=== PATIENT | female | born 2000 | race Caucasian/White ===

== ENCOUNTER → 2020-04-07 16:25 | Outpatient (CLI) | payer MEDICAID, SELFPAY ==
[2020-04-07 17:33] LABS: HCG,Quantitative 1569 mIU/ml (0-5.42)
== END ==
PROVIDERS: Visit Provider Nurse Practitioner Obstetrics & Gynecology
DX: Z34.90 Encounter for supervision of normal pregnancy, unspecified, unspecified trimester (principal)
CPT/HCPCS: 36415; 84702

== ENCOUNTER → 2020-04-22 17:45 | Outpatient (CLI) | payer MEDICAID, SELFPAY ==
[2020-04-27 10:27] LABS: Neisseria gonorrhoeae, NAA Negative (Negative)
== END ==
PROVIDERS: Visit Provider Nurse Practitioner Obstetrics & Gynecology
DX: Z34.90 Encounter for supervision of normal pregnancy, unspecified, unspecified trimester (principal)
CPT/HCPCS: 87491; 87591

== ENCOUNTER → 2020-04-28 11:06 | Outpatient (CLI) | payer MEDICAID, SELFPAY ==
--- NOTE | 2020-04-28 11:13 | US_ITS ---
PROCEDURE: US OB <= 14 WEEKS FETUS CLINICAL INDICATION: for dates Early Ob ultrasound for dates COMPARISON: No exams were available for comparison FINDINGS: An intrauterine gestational sac is present with a pole with a crown-rump length of 1.61cm correlating to gestational age of 8weeks 1day. heart tones are present with an FHR of 150bpm. Yolk sac is noted. Left-sided hemorrhagic the glued in cyst noted at 2 cm. IMPRESSION: Of 8 live IUP with estimated age of 8 weeks and 1 day. Estimated due date by Ultrasound is 12/07/2020 Dictated by: Antonio Roland MD 04/28/2020 15:48 Antonio Roland MD in [facility] 04/28/2020 15:48
== END ==
PROVIDERS: PCP Internal Medicine; Visit Provider Nurse Practitioner Obstetrics & Gynecology
DX: Z34.90 Encounter for supervision of normal pregnancy, unspecified, unspecified trimester (principal)
CPT/HCPCS: 76801

== ENCOUNTER → 2020-05-17 10:22 | Outpatient (CLI) | payer MEDICAID, SELFPAY ==
[2020-05-17 10:53] LABS: Basophils % 0.2 % (0.1-2.0); Eosinophils # 0.1 K/mm3 (0.0-0.4); Eosinophils % 0.7 % (0.1-12.0); Hematocrit 41.4 % (37.0-47.0); Hemoglobin 13.5 g/dL (12.2-16.2); Lymphocytes # 1.8 K/mm3 (0.7-4.5); Lymphocytes % 18.3 % (10-50); Mean Corpuscular HGB Conc 32.7 g/dL (31.8-35.4); Mean Corpuscular Hemoglobin 28.8 pg (27.0-31.2); Mean Corpuscular Volume 88.1 fl (81-99); Mean Platelet Volume 7.3 fl (7.4-10.4); Monocytes # 0.4 K/mm3 (0.1-1.0); Monocytes % 4.4 % (1.7-9.3); Neutrophils # 7.4 K/mm3 (1.8-7.8); Neutrophils % 76.4 % (37.0-80.0); Platelet Count 354 K/mm3 (142-424); Red Cell Distribution Width 13.8 % (11.5-17.5); White Blood Count 9.7 K/mm3 (4.5-13.0)
[2020-05-18 09:16] LABS: HIV Screen 4th Generation wRfx Non Reactive (Non Reactive)
[2020-05-18 10:50] LABS: Hepatitis B Surface Antigen Negative (Negative); Hepatitis C Antibody <0.1 s/co ratio (0.0-0.9); Rubella Antibodies, IgG 1.79 index (Immune >0.99)
[2020-05-18 16:27] LABS: Rapid Plasma Reagin Ab Titer Non Reactive (NonRea<1:1)
== END ==
PROVIDERS: Visit Provider Nurse Practitioner Obstetrics & Gynecology
DX: Z34.90 Encounter for supervision of normal pregnancy, unspecified, unspecified trimester (principal)
CPT/HCPCS: 36415; 85025; 86592; 86703; 86762; 86850; 87340; 87380; G0432

== ENCOUNTER → 2020-07-23 10:54 | Outpatient (CLI) | payer MEDICAID, SELFPAY ==
--- NOTE | 2020-07-23 10:56 | US_ITS ---
PROCEDURE: US OB /MATERNAL DETAIL CLINICAL INDICATION: 20 wk +Anatomy Scan COMPARISON: US US OB <= 14 WEEKS FETUS from 04/28/2020 FINDINGS: There is a single live fetus which is in breech presentation. Cervix is closed measuring 4 cm. The placenta is anterior have an unremarkable appearance. heart and body motion noted. Complete survey performed and was unremarkable on the submitted images as in PACS. No discrete anomalies identified on survey imaging by technologist. Active fetus. Three-vessel cord with satisfactory umbilical cord insertion. 4- chamber heart noted. Survey of brain & ventricles Unremarkable. Face and neck survey unremarkable. Diaphragm and chest views unremarkable. Abdomen: Both kidneys noted and unremarkable. Stomach noted and satisfactory. Spine: Survey of the spine satisfactory with no anomalies identified nor imaged. Both arms and legs noted. Amniotic Fluid: Adequate. Maternal adnexa: No significant findings. Measurements: Average ultrasound age 20weeks 2days. Gestational Age 20weeks 2days Estimated due date by ultrasound age 0812/08/2020. Estimated weight 344g BPD = 20weeks 3days OFD = 20 weeks 5 days HC = 19weeks 6days AC = 20weeks 3days FL = 20weeks 3days Growth Percentile= 38% Heart Rate = 152bpm Cerebellum = 20weeks 4days Humerus = HC/AC is 1.14 CI is 0.78 FL/BPD is 0.7 FL/AC is 0.22 IMPRESSION: Live IUP in breech presentation with an average ultrasound age of 20 weeks 2 days. No obvious anomalies. Please see above for detail. Dictated by: Antonio Roland MD 07/24/2020 10:11 Antonio Roland MD in [facility] 07/24/2020 10:11
== END ==
PROVIDERS: PCP Internal Medicine; Visit Provider Nurse Practitioner Obstetrics & Gynecology
DX: Z34.80 Encounter for supervision of other normal pregnancy, unspecified trimester (principal); Z36.0 Encounter for antenatal screening for chromosomal anomalies; Z98.891 History of uterine scar from previous surgery
CPT/HCPCS: 76811

== ENCOUNTER → 2020-09-03 08:26 | Outpatient (CLI) | payer MEDICAID, SELFPAY ==
[2020-09-03 09:19] LABS: Glucose,Fasting 88 mg/dl (74-100)
[2020-09-03 10:21] LABS: Glucose 1 Hour 57 mg/dL (74-100)
== END ==
PROVIDERS: Visit Provider Nurse Practitioner Obstetrics & Gynecology
DX: Z34.90 Encounter for supervision of normal pregnancy, unspecified, unspecified trimester (principal)
CPT/HCPCS: 36415; 82951

== ENCOUNTER → 2020-10-29 14:37 | Outpatient (CLI) | payer MEDICAID, SELFPAY ==
--- NOTE | 2020-10-29 14:37 | US_ITS ---
PROCEDURE: US OB BIOPHYSICAL PROFILE CLINICAL INDICATION: SGA TECHNIQUE: FINDINGS: Single live fetus is present which is in cephalic presentation. Cervix is closed measuring 3 cm. The placenta is anterior and grade 1. No previa or abruption. The following parameters are obtained: Average ultrasound age is Average 33weeks 2days Estimated due date by ultrasound is 12/15/2020. Estimated weight is 2,133g. This is 14th percentile. BPD: 32weeks 2days OFD: 32weeks 2days HC: 32 weeks 5 days AC: 33 weeks 2 days FL: 33 weeks 3 days heart rate: 150bpm bpm. HC/AC: 1.01 Cephalic index: 0.8 FL/BPD: 0.78 FL/AC: 0.22 Amniotic fluid index: 12.69cm Qualitative AFV: 2 breathing movements: 2 Gross body movements: 2 Tone: 2 Biophysical profile score: 8 IMPRESSION: BP in cephalic presentation with an average ultrasound age 32 weeks 2 days and an estimated weight 2133 g which is 14th percentile which does not meet criteria for intrauterine growth restriction. Biophysical profile 8 of 8 Amniotic fluid index 13 cm Dictated by: Antonio Roland MD 10/29/2020 16:08 Antonio Roland MD in [facility] 10/29/2020 16:08
== END ==
PROVIDERS: Visit Provider Nurse Practitioner Obstetrics & Gynecology
DX: O36.5990 Maternal care for other known or suspected poor fetal growth, unspecified trimester, not applicable or unspecified (principal)
CPT/HCPCS: 76816; 76819

== ENCOUNTER 2020-11-05 02:42 | Outpatient (CLI) | payer MEDICAID, SELFPAY ==
[2020-11-05 02:48] VITALS: BMI 24.7
[2020-11-05 03:08] VITALS: BP 122/77; PULSE 98; RESP 18; TEMP 36.8; O2SAT 100; BMI 24.7
[2020-11-05 04:19] LABS: Microscopic, Urine URINE MICROSCOPIC (MICROSCOPIC)
[2020-11-05 04:29] LABS: Appearance,Urine CLEAR (Clear); Bilirubin,Urine Negative (Negative); Blood, Urine Negative (Negative); Color,Urine YELLOW (Yellow); Glucose,Urine (UA) Negative (Negative); Ketones,Urine Negative (Negative); Leukocyte Esterase,Urine TRACE (Negative); Nitrate,Urine Negative (Negative); Protein,Urine Negative (Negative); Urobilinogen,Urine 0.2 EU/dl (0.2)
[2020-11-05 05:06] LABS: Amphetamine/Metha Screen,Urine Negative ng/ml (<1000)
[2020-11-05 05:07] LABS: Barbiturates Screen,Urine Negative ng/ml (<200); Benzodiazepines Screen,Urine Negative ng/ml (<200)
[2020-11-05 05:08] LABS: Cannabinoid Screen,Urine Negative ng/ml (<50)
[2020-11-05 05:09] LABS: Cocaine Screen,Urine Negative ng/ml (<300); Methadone Screen,Urine Negative ng/ml (<300)
[2020-11-05 05:10] LABS: Opiate Screen,Urine Negative ng/ml (<300); Phencyclidine Screen,Urine Negative ng/ml (<25)
[2020-11-05 05:21] LABS: WBC,Urine Occasional #/hpf (0-3)
--- NOTE | 2020-11-05 09:29 | HMH.ACPN2 ---
Internal Medicine - PN: Subj *Date: 11/05/20 *Time: 09:29 Interval history: She came in with regular contractions. She is amparo every 2 to 3 minutes. She has received IV fluids as well as 1 dose of Brethine. We decided to give her a dose of Celestone as well since she is just 35 weeks. After receiving the IV fluids and Brethine her contractions have settled. The nonstress test is reactive. Her cervix is long and closed. She is due for a repeat in about 4 weeks. Exam Vital signs and Labs for Last 24 Hours: Temp Pulse Resp BP Pulse Ox 98.2 F 98 H 18 122/77 100 11/05/20 03:08 11/05/20 03:08 11/05/20 03:08 11/05/20 03:08 11/05/20 03:08 Laboratory Results - last 24 hr 11/05/20 03:27: Urine Color Yellow, Urine Appearance Clear, Urine pH 7.0, Ur Specific [place] 1.010, Urine Protein Negative, Urine Glucose (UA) Negative, Urine Ketones Negative, Urine Blood Negative, Urine Nitrate Negative, Urine Bilirubin Negative, Urine Urobilinogen 0.2, Ur Leukocyte Esterase Trace, Urine RBC None, Urine WBC Occasional, Ur Squamous Epith Cells 3-5, Urine Bacteria None 11/05/20 03:27: Urine Opiates Screen Negative, Urine Methadone Screen Negative, Ur Barbituates Screen Negative, Ur Phencyclidine Scrn Negative, Ur Amphetamines Screen Negative, U Benzodiazepines Scrn Negative, Urine Cocaine Screen Negative, U Marijuana (THC) Screen Negative I & O for Last 24 hours: Intake & Output 11/02/20 11/03/20 11/04/20 11/05/20 11:59 11:59 11:59 11:59 Weight 153 lb - Constitutional no acute distress - *Routine HEENT Exam Head: Present: normocephalic Eye: Present: EOMI, PERRL ENT: Present: mucous membranes moist Assessment and Plan (1) False labor Status: Acute Category: Medical Code(s): O47.9 - False labor, unspecified (2) Previous section Status: Acute Category: Surgical Code(s): Z98.891 - History of uterine scar from previous surgery - Assessment and plan all Dx Assessment and Plan for all problems:: She received IV fluids as well as 1 dose of Brethine. Her contractions have settled. Her cervix is unchanged. She has received 1 dose of Celestone and will return tomorrow for her second dose. Should be discharged home to follow-up with me next week.
== END 2020-11-05 09:00 | disposition home or self-care (01) ==
LOC: OBOUT 02:44 → OB 02:45
PROVIDERS: Visit Provider Nurse Practitioner Obstetrics & Gynecology
DX: O47.03 False labor before 37 completed weeks of gestation, third trimester (principal); Z3A.35 35 weeks gestation of pregnancy
CPT/HCPCS: 59025; 80305; 81001; 96365; 96372; G0463

== ENCOUNTER 2020-11-06 04:02 | Outpatient (CLI) | payer MEDICAID, SELFPAY ==
[2020-11-06 04:04] VITALS: BP 116/77; PULSE 80; RESP 18; TEMP 37; O2SAT 98; BMI 24.7
[2020-11-06 04:19] LABS: Microscopic, Urine URINE MICROSCOPIC (MICROSCOPIC)
[2020-11-06 04:21] LABS: Appearance,Urine SL CLOUDY (Clear); Bilirubin,Urine Negative (Negative); Blood, Urine Negative (Negative); Color,Urine YELLOW (Yellow); Glucose,Urine (UA) Negative (Negative); Ketones,Urine Negative (Negative); Leukocyte Esterase,Urine 1+ (Negative); Nitrate,Urine Negative (Negative); PH,Urine 6.5 (5.0-8.5); Protein,Urine Negative (Negative); Urobilinogen,Urine 0.2 EU/dl (0.2)
[2020-11-06 04:29] LABS: Bacteria,Urine 4+ /lpf; Yeast,Urine 1+ /lpf
[2020-11-06 04:32] LABS: Amphetamine/Metha Screen,Urine Negative ng/ml (<1000)
[2020-11-06 04:33] LABS: Barbiturates Screen,Urine Negative ng/ml (<200); Benzodiazepines Screen,Urine Negative ng/ml (<200)
[2020-11-06 04:34] LABS: Cannabinoid Screen,Urine Negative ng/ml (<50)
[2020-11-06 04:35] LABS: Cocaine Screen,Urine Negative ng/ml (<300); Methadone Screen,Urine Negative ng/ml (<300)
[2020-11-06 04:36] LABS: Opiate Screen,Urine Negative ng/ml (<300)
[2020-11-06 04:37] LABS: Phencyclidine Screen,Urine Negative ng/ml (<25)
== END 2020-11-06 07:55 | disposition home or self-care (01) ==
LOC: OBOUT 04:04 → OB 04:04
PROVIDERS: Visit Provider Nurse Practitioner Obstetrics & Gynecology
DX: O47.03 False labor before 37 completed weeks of gestation, third trimester (principal); Z3A.35 35 weeks gestation of pregnancy
CPT/HCPCS: 59025; 80305; 81001; 87086; 96365; 96372; G0463

== ENCOUNTER → 2020-11-09 08:33 | Outpatient (CLI) | payer MEDICAID, SELFPAY | PROVIDERS: Visit Provider Nurse Practitioner Obstetrics & Gynecology | DX: Z34.90 Encounter for supervision of normal pregnancy, unspecified, unspecified trimester (principal) | CPT/HCPCS: 86403 ==

== ENCOUNTER → 2020-11-30 12:25 | Outpatient (CLI) | payer MEDICAID, SELFPAY ==
[2020-11-30 12:28] LABS: Coronavirus 19, PCR Not Detected (NotDetected); Influenza A, PCR Not Detected (NotDetected); Influenza B, PCR Not Detected (NotDetected)
[2020-11-30 13:09] LABS: Chloride 105 mmol/L (98-107); Sodium 134 mmol/L (136-145)
[2020-11-30 13:12] LABS: Blood Urea Nitrogen 9 mg/dl (7-17); Estimated Glomerular Filt Rate 107 ml/min (>60); GFR (African American) 129 ML/MIN (>60)
[2020-11-30 13:13] LABS: Calcium 8.9 mg/dl (8.4-10.2); Carbon Dioxide 25 mmol/L (22.0-30.0); Glucose 102 mg/dl (74-100)
[2020-11-30 13:21] LABS: Basophils % 0.3 % (0.1-2.0); Eosinophils % 0.3 % (0.1-12.0); Hematocrit 35.7 % (37.0-47.0); Hemoglobin 11.1 g/dL (12.2-16.2); Lymphocytes # 1.9 K/mm3 (0.7-4.5); Lymphocytes % 21.2 % (10-50); Mean Corpuscular HGB Conc 31.1 g/dL (31.8-35.4); Mean Corpuscular Hemoglobin 25.3 pg (27.0-31.2); Mean Corpuscular Volume 81.4 fl (81-99); Mean Platelet Volume 7.3 fl (7.4-10.4); Monocytes # 0.5 K/mm3 (0.1-1.0); Monocytes % 5.6 % (1.7-9.3); Neutrophils # 6.6 K/mm3 (1.8-7.8); Neutrophils % 72.7 % (37.0-80.0); Platelet Count 300 K/mm3 (142-424); Red Blood Count 4.38 M/mm3 (4.20-5.40); Red Cell Distribution Width 14.7 % (11.5-17.5); White Blood Count 9.1 K/mm3 (4.5-13.0)
== END ==
PROVIDERS: Visit Provider Nurse Practitioner Obstetrics & Gynecology
DX: Z01.818 Encounter for other preprocedural examination (principal); Z34.90 Encounter for supervision of normal pregnancy, unspecified, unspecified trimester
CPT/HCPCS: 36415; 80048; 85025; U0003

== ENCOUNTER 2020-12-01 05:05 | Inpatient (IN) | payer MEDICAID, SELFPAY ==
--- NOTE | 2020-11-06 15:27 | PC.NURSE ---
@ 1525 [facility] pharmacy called and reported we needed a PA for insurance. Not able to do that right now. pharmacist reported she can do no insurance and get 20 pills for $15 or 10 pills for $8. will call patient. [phone] attempted to call patient and make her aware of situation. No answer
--- NOTE | 2020-11-25 12:05 | SUR.PREOP ---
instructed ptatient to come in Sunday for COVID screening. Patient stated understanding
[2020-12-01] VITALS (9 sets, daily range): BP systolic 117–161; BP diastolic 63–80; PULSE 63–82; RESP 14–18; TEMP 36.6–36.9; O2SAT 98–100; BMI 25.9
[2020-12-01 06:32] LABS: Microscopic, Urine URINE MICROSCOPIC (MICROSCOPIC)
[2020-12-01 06:34] LABS: Appearance,Urine SL CLOUDY (Clear); Bilirubin,Urine Negative (Negative); Blood, Urine Negative (Negative); Color,Urine YELLOW (Yellow); Glucose,Urine (UA) Negative (Negative); Ketones,Urine Negative (Negative); Leukocyte Esterase,Urine 2+ (Negative); Nitrate,Urine Negative (Negative); PH,Urine 6.5 (5.0-8.5); Protein,Urine Negative (Negative); Specific Gravity, Urine 1.025 (1.005-1.030); Urobilinogen,Urine 0.2 EU/dl (0.2)
[2020-12-01 06:48] LABS: Bacteria,Urine Trace /lpf; RBC,Urine Occasional #/hpf (0-3)
--- NOTE | 2020-12-01 07:11 | P.PN_ITS ---
[facility] Anesthesia Checklist - Patient Identification Patient Identification: Arm Band - Structural Data Planned Operative Procedure/s: C/S Consent for Planned Operative Procedure(s) Verified: Yes - NPO Status Verified Time NPO: 00:00 - Airway Assessment C-Spine Mobility Assessed: Yes TMJ Mobility Assessed: Yes Dentition: Good Dentition - Neurological Assessment Level of Consciousness: Awake Hx Seizures: No Numbness or tingling in extremities: No - Anesthesia Plan Anesthesia Risk discussed: Yes Anesthesia Plan: Verified ASA Class: II Anesthesia Type: General (Patient request due to anaphylaxis to Lidocaine) [facility] History I have reviewed the patient's past medical history: Yes Medical History: Denies:: Cancer, Diabetes Mellitus Type 1, Diabetes Mellitus Type 2, MRSA *Have you ever received a pneumonia vaccine?: No *Have you received a flu vaccine this season?: No Anesthesia experience/problems:: None Laterality Cases: Bilateral: Tonsillectomy Other Surgeries: Yes: , Other Amputation: No Fractures: No - *Social History Smoking Status: Never smoker Alcohol Intake: never Alcohol Intake Frequency:: other Substance Use Type: denies use *Occupational Status:: employed *Travel in the last 8 weeks: None Family Hx:: No significant family history Para: 1
[2020-12-01 07:52] LABS: Cord Blood PH 7.38 (7.35-7.45)
--- NOTE | 2020-12-01 08:11 | HMH.OPNOTE ---
Date of procedure: 12/01/20 Pre-op Diagnosis:: Term , previous section, severe allergy to lidocaine Post-op Diagnosis:: Term , previous section, severe allergy to lidocaine Procedure performed:: Repeat lower segment transverse section Surgeon:: Elvis Grijalva MD Associate Material Handler(s):: Lakeshia Somers SEMICONDUCTOR EQUIPMENT TECHNICIAN:: Clarice Larkin Anesthesia: GETA Estimated blood loss (mL): 600 Clinical Note:: She is a 20-year-old 2 para 1 at 39 weeks gestational age. She had a previous section. 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 As result of that she was offered repeat lower segment transverse section at term under general anesthesia. The risks and benefits of surgery were discussed with the patient prior to surgery. Operative findings:: She delivered a liveborn male child at 7:45 AM on the morning of December 01, 2020. The baby had Apgars of 6 at 1 minute 7 at 5 minutes and 9 at 10 minutes. pH was 7.38. Ovaries and tubes were normal. The lower segment was quite thin. Operative note:: She was taken to the operating room where general anesthesia was found be adequate. She was prepped and draped in normal sterile fashion in the supine position with a leftward tilt. A Gates catheter was in the bladder. A Pfannenstiel skin incision was made with knife then carried through to the underlying layer of fascia with knife. The fascia was opened in the midline with cautery and extended laterally using Ayala scissors. [place] clamps were applied to the superior aspect of the fascial incision which was tented up and the underlying rectus muscles dissected off using Ayala scissors. The Madan clamps were then applied to the inferior aspect of the fascial incision which in a similar fashion was tented up and the underlying rectus muscles dissected off using Ayala scissors. The rectus muscles were then in the midline, the peritoneum identified, and entered sharply with Ayala scissors. This incision was then extended superiorly and inferiorly with Ayala scissors. We had good visualization of the bladder inferiorly. The bladder flap was quite thin so we elected to not dissect the bladder off and just went slightly above the level of the bladder flap to enter the uterine cavity. Transverse incision was made through the uterine muscle to the amnion. This incision was then extended laterally using fingers traction. The amnion was entered sharply with knife. There was clear amniotic fluid. The infant's head was then delivered atraumatically. This was followed by the anterior shoulder and the rest of the infant's body atraumatically. The oropharynx and nasopharynx were bulb suctioned. The was then handed off to Dr. Garcia who assigned Apgars of 6 at 1 minute and 7 at 5 minutes and 9 at 5 minutes.. We then obtained cord blood as well as cord pH. The pH was 7.38. Using gentle traction on the cord and countertraction on the fundus I was able to easily deliver the placenta intact. It had a normal three-vessel cord. The uterus was then cleared of clots and debris . Uterus was exteriorized from the abdominal cavity. The uterine incision was then closed using running 0 Vicryl suture in a locked fashion. A second layer of the same suture was used to imbricate the first layer. The bladder peritoneum was then closed using running 2-0 Vicryl suture in a locked fashion. The gutters and cul-de-sac were then cleared of clots and debris . Once again hemostasis was assured. The uterus was then returned to the abdominal cavity. I elected to place a small piece of Surgicel along the uterine incision. The peritoneum was grasped with Kendy clamps and closed using running 2-0 Vicryl suture. The rectus muscles were then reapproximated using running 0 Vicryl suture. The fascia was closed using running #1 Vicryl suture. The subcutaneous tissues were then irrigated with warm water followed by closure Tawny's fascia usi
[2020-12-01 08:20] LABS: Barbiturates Screen,Urine Negative ng/ml (<200)
[2020-12-01 08:21] LABS: Amphetamine/Metha Screen,Urine Negative ng/ml (<1000); Benzodiazepines Screen,Urine Negative ng/ml (<200)
--- NOTE | 2020-12-01 08:21 | HMH.OBAPHP ---
OB - H&P: HPI Antepartum - History of Present Illness Chief complaint: Term , previous section, lidocaine allergy History of present illness: She is a 20-year-old 2 para 1 at 39 weeks gestational age. She had a previous section and as result of that was offered repeat lower segment transverse section at term. She also has a severe anaphylactic allergy to lidocaine and as result of that was offered general anesthesia for her section. - History of Present Criteria for establishing EDC:: LMP confirmed by 1st trimester US care: good care Ultrasounds: normal 1st trimester US, normal mid trimester US Obstetrical complications: none Medical complications: none - Labs Blood type: O (-) negative Rubella: immune RPR/VDRL: nonreactive GBS status: negative HBsAG: negative [facility] History I have reviewed the patient's past medical history: Yes Medical History: Denies:: Cancer, Diabetes Mellitus Type 1, Diabetes Mellitus Type 2, MRSA, Seizures *Have you ever received a pneumonia vaccine?: No *Have you received a flu vaccine this season?: No Anesthesia experience/problems:: None Laterality Cases: Bilateral: Tonsillectomy Other Surgeries: Yes: , Other Amputation: No Fractures: No - *Social History Smoking Status: Never smoker Alcohol Intake: never Alcohol Intake Frequency:: other Substance Use Type: denies use *Occupational Status:: employed *Travel in the last 8 weeks: None Family Hx:: No significant family history Para: 1 Review of Systems - Review of Systems Review of systems:: pertinent systems reviewed and negative unless documented below Meds Home Medications Medication Instructions Recorded Confirmed Type PNV 153-FA 400 mcg-om3 35 mg-dha tab PO 04/22/20 11/29/20 History 25 mg-epa 5 mg-fish oil chew tablet ferrous sulfate 325 mg (65 mg 325 mg PO DAILY #30 tab 07/23/20 11/29/20 Rx iron) tablet NIFEdipine [NIFEdipine 10mg 10 mg PO Q6H #120 cap 11/06/20 11/29/20 Rx Capsule] Allergies Allergy/AdvReac Type Severity Reaction Status Date / Time lidocaine Allergy Verified 11/29/20 12:29 OB - H&P: Exam - Physical Exam Vital signs: Temp Pulse Resp BP Pulse Ox 97.8 F 75 18 124/80 99 12/01/20 06:17 12/01/20 06:17 12/01/20 06:17 12/01/20 06:17 12/01/20 06:17 - Constitutional no acute distress - Routine HEENT Exam Head: Present: normocephalic Eye: Present: EOMI, PERRL ENT: Present: mucous membranes moist - Routine Neck Exam Present: supple, full ROM - Routine Respiratory Exam Absent: accessory muscle use (good air entry bilaterally), respiratory distress, wheezes, crackles - Routine Cardiovascular Exam Present: RRR. Absent: murmur - Routine Abdominal Exam Present: soft, normoactive bowel sounds. Absent: tenderness, distended, guarding - Routine Rectal Exam Patient deferred: visual exam, digital exam - Routine Exam Patient deferred: external exam, groin exam, perineal exam - Routine Extremities Exam Present: full ROM. Absent: cyanosis, edema - Routine Skin Exam Present: intact. Absent: cyanosis - Routine Neurological Exam Present: alert, oriented X3 - Routine Psychiatric Exam Present: normal affect OB - Results - Labs Labs: Urine 12/01/20 Range/Units 05:56 Urine Color Yellow (Yellow) Urine Appearance Sl cloudy (Clear) Urine pH 6.5 (5.0-8.5) Ur Specific [place] 1.025 (1.005-1.030) Urine Protein Negative (Negative) Urine Glucose (UA) Negative (Negative) OB - A/P Antepartum (1) delivery delivered Status: Acute (2) Previous section Status: Acute - Additional Plan Planning to breastfeed?: No Plan: other Additional Information:: She is here for repeat lower segment transverse section.
[2020-12-01 08:22] LABS: Cannabinoid Screen,Urine Negative ng/ml (<50)
--- NOTE | 2020-12-01 08:22 | HMH.ANESI ---
[facility] Anesthesia Record Part I Intake, IV Amount: 1,000 Estimated blood loss (mL): 600 Urine output (mL): 200 Blood Pressure: 161/73 SaO2: 99 Pulse Rate: 82 Respiratory Rate: 14 Temperature: 98.4 F Patient is:: Awake Stable to PACU at:: 08:20
[2020-12-01 08:23] LABS: Cocaine Screen,Urine Negative ng/ml (<300); Methadone Screen,Urine Negative ng/ml (<300)
[2020-12-01 08:24] LABS: Opiate Screen,Urine Negative ng/ml (<300)
[2020-12-01 08:25] LABS: Phencyclidine Screen,Urine Negative ng/ml (<25)
--- NOTE | 2020-12-01 09:15 | SUR.OPER ---
QBL completed in PACU and recorded as 544ml, reported to dr duke/ apgars reported by OB as , time of 0745, 200 urine discarded from [place]fe per anesthesia
--- NOTE | 2020-12-01 10:11 | HMH.ANESII ---
[facility] Anesthesia Record Part II Discharge Time: 08:50 Destination: Obstetric PACU nurse assessment reviewed?: Yes Patient Condition:: Good Anesthesia Complications:: None Swallowing reflex intact?: Yes Cyanosis?: No Blood Pressure: 126/72 Pulse Rate: 70 Temperature: 98.3 F Mental Status: Alert & Oriented Pain level:: 7 Nausea and/or vomitting:: None Intake, IV Amount: 0
[2020-12-01 14:34] LABS: Microscopic,Cath URINE MICROSCOPIC (MICROSCOPIC)
[2020-12-01 14:47] LABS: Appearance,Urine/Cath CLEAR (Clear); Bilirubin,Cath Negative (Negative); Blood, Urine/Cath Negative (Negative); Color,Urine/Cath YELLOW (Yellow); Glucose,Urine/Cath (UA) Negative (Negative); Ketones,Urine/Cath Negative (Negative); Leukocyte Esterase,Cath Negative (Negative); Nitrate,Cath Negative (Negative); Protein,Urine/Cath Negative (Negative); Urobilinogen,Cath 0.2 EU/dl (0.2)
[2020-12-02 07:03] LABS: Hematocrit 29.5 % (37.0-47.0); Hemoglobin 9.5 g/dL (12.2-16.2)
[2020-12-02 09:07] VITALS: BP 109/79; PULSE 66; RESP 16; TEMP 36.5; O2SAT 100
--- NOTE | 2020-12-02 09:08 | HMH.ACPN2 ---
Internal Medicine - PN: Subj *Date: 12/02/20 *Time: 09:08 Interval history: She is doing very well. Her hemoglobin is stable. Her pain is well controlled. She is bottlefeeding. Her lochia is normal. She is 24 hours post section. Exam Vital signs and Labs for Last 24 Hours: Temp Pulse Resp BP Pulse Ox 98.3 F 70 18 126/72 98 12/01/20 10:12 12/01/20 10:12 12/01/20 09:25 12/01/20 10:12 12/01/20 08:50 Laboratory Results - last 24 hr 12/01/20 07:30: Urine Color Yellow, Urine Appearance Clear, Urine pH 7.0, Ur Specific [place] 1.010, Urine Protein Negative, Urine Glucose (UA) Negative, Urine Ketones Negative, Urine Blood Negative, Urine Nitrate Negative, Urine Bilirubin Negative, Urine Urobilinogen 0.2, Ur Leukocyte Esterase Negative, Urine RBC None, Urine WBC None, Ur Squamous Epith Cells None, Urine Bacteria None 12/02/20 06:25: Hgb 9.5 L, Hct 29.5 L I & O for Last 24 hours: Intake & Output 11/29/20 11/30/20 12/01/20 12/02/20 11:59 11:59 11:59 11:59 Intake Total 1070 / 1070 Output Total 200 / 200 Balance 870 / 870 Weight 5 lb 6 oz Microbiology Reports for the Last 24 Hours: Microbiology 12/01/20 05:56 Urine,Clean Catch Urine Culture - Preliminary NO GROWTH AFTER 24 HOURS - Constitutional no acute distress - *Routine HEENT Exam Head: Present: normocephalic Eye: Present: EOMI, PERRL ENT: Present: mucous membranes moist - *Routine Abdominal Exam Present: soft, normoactive bowel sounds. Absent: tenderness Comments: Her incision is clean and dry. Assessment and Plan (1) delivery delivered Status: Acute Category: Medical Code(s): O82 - Encounter for delivery without indication (2) Previous section Status: Acute Category: Surgical Code(s): Z98.891 - History of uterine scar from previous surgery - Assessment and plan all Dx Assessment and Plan for all problems:: She continues to do very well. We will plan to send her home tomorrow.
[2020-12-02 12:46] VITALS: BP 100/51; PULSE 84; RESP 18; TEMP 36.8; O2SAT 98
[2020-12-02 16:40] VITALS: BP 104/53; PULSE 69; RESP 17; TEMP 36.9; O2SAT 98
[2020-12-02 20:00] VITALS: BP 107/63; PULSE 83; RESP 18; TEMP 36.7; O2SAT 100
[2020-12-03 04:36] VITALS: BP 112/67; PULSE 86; RESP 17; TEMP 36.8; O2SAT 98
[2020-12-03 08:26] VITALS: BP 114/70; PULSE 83; RESP 16; TEMP 36.8; O2SAT 98
--- NOTE | 2020-12-03 10:43 | HMH.ACPN2 ---
Internal Medicine - PN: Subj *Date: 12/03/20 *Time: 10:43 Interval history: She continues to do very well. She is eating and drinking and ambulating. She is bottlefeeding. Her lochia is normal. We were planning to send her home today but her baby is going to be under the bili lights for the next day. We will plan to send her home tomorrow. Exam Vital signs and Labs for Last 24 Hours: Temp Pulse Resp BP Pulse Ox 98.3 F 83 16 114/70 98 12/03/20 08:26 12/03/20 08:26 12/03/20 08:26 12/03/20 08:26 12/03/20 08:26 I & O for Last 24 hours: Intake & Output 11/30/20 12/01/20 12/02/20 12/03/20 11:59 11:59 11:59 11:59 Intake Total 1070 / 1070 Output Total 200 / 200 Balance 870 / 870 Weight 5 lb 6 oz Microbiology Reports for the Last 24 Hours: Microbiology 12/01/20 05:56 Urine,Clean Catch Urine Culture - Final NO GROWTH AFTER 48 HOURS - Constitutional no acute distress - *Routine HEENT Exam Head: Present: normocephalic Eye: Present: EOMI, PERRL ENT: Present: mucous membranes moist Assessment and Plan (1) delivery delivered Status: Acute Category: Medical Code(s): O82 - Encounter for delivery without indication (2) Previous section Status: Acute Category: Surgical Code(s): Z98.891 - History of uterine scar from previous surgery - Assessment and plan all Dx Assessment and Plan for all problems:: She is doing very well. We will send her home tomorrow.
[2020-12-03 12:04] VITALS: BP 110/58; PULSE 98; RESP 18; TEMP 36.8; O2SAT 98
[2020-12-03 16:02] VITALS: BP 110/63; PULSE 88; RESP 16; TEMP 36.8; O2SAT 99
[2020-12-03 20:00] VITALS: BP 112/67; PULSE 75; RESP 18; TEMP 37.4; O2SAT 100
[2020-12-04 04:00] VITALS: BP 99/67; PULSE 83; RESP 18; TEMP 37; O2SAT 100
[2020-12-04 08:16] VITALS: BP 110/61; PULSE 88; RESP 18; TEMP 36.7; O2SAT 98
--- NOTE | 2020-12-04 08:16 | P.CONPHA_ITS ---
[facility] Pharmacy VTE Monitoring - Patient Demographics Admission date: 12/01/20 Report Date: 12/04/20 Time: 08:16 Allergies/Adverse Reactions: Patient Allergies lidocaine Allergy (Verified 11/29/20 12:29) Height: 1.68 m Weight: 2.438 kg Patient Problems: Current Active Problems Previous section (Acute) delivery delivered (Acute) - VTE Risk Labs: VTE Related Lab Results Hgb 9.5 g/dL (12.2-16.2) L 12/02/20 06:25 Hct 29.5 % (37.0-47.0) L 12/02/20 06:25 - Prophylaxis VTE Prophylaxis Ordered?: Yes Types of VTE Prophylaxis: IPCS Thigh High Location of Applied Device: Bilateral Lower Extremeties
--- NOTE | 2020-12-04 09:38 | HMH.OBDCSM ---
General - General Admission date:: 12/01/20 Discharge date: 12/04/20 HPI - History of Present Illness History of present illness: She is a 20-year-old 2 now para 2 who was 39 weeks gestational age. She had a previous section and as result of that was offered repeat lower segment transverse section at term. She has a severe allergy to lidocaine and as result of that was offered general anesthesia for her . Hospital Course Hospital Course: On November 23, 2020 she underwent a repeat lower segment transverse section under general anesthesia. She delivered a liveborn male child at 7:45 AM. Baby weighed 6 pounds 2 ounces and was 18 inches long. He had Apgars of 6 at 1 minute 7 at 5 minutes and 9 at 10 minutes. She has done well and has remained afebrile throughout her hospitalization. She is eating and drinking and ambulating. She is bottlefeeding. Her lochia is normal. She has O+ blood, she is rubella immune and was group B streptococcus negative. Her assignment desk assistant is Dr. Garcia. She is discharged home to follow-up with me in approximately 2 weeks time. She will continue with her vitamins and iron. She was given a prescription for Percocet 5/325 number 20 tablets. She was given the usual instructions with respect to limiting her activity, driving and sexual activity. She was given instructions with respect to wound care. Condition on discharge is stable and improved. Rhogam Administration: Not Indicated Objective Vital signs: Temp Pulse Resp BP Pulse Ox 98.0 F 88 18 110/61 98 12/04/20 08:16 12/04/20 08:16 12/04/20 08:16 12/04/20 08:16 12/04/20 08:16 no acute distress - *Routine HEENT Exam Head: Present: normocephalic Eye: Present: EOMI, PERRL ENT: Present: mucous membranes moist - *Routine Abdominal Exam Present: soft, normoactive bowel sounds. Absent: tenderness DS: Diagnosis - Discharge Diagnosis (1) delivery delivered Status: Acute (2) Previous section Status: Acute Discharge Plan - Patient Discharge Instructions ACTIVITY: No heavy lifting DIET: continue same diet Additional Instructions: No heavy lifting/strenuous activity Nothing in the vagina for 6 weeks No driving for 2 weeks or while taking prescription narcotics Patient Instructions: Depression, Hemorrhage, DI for , DI for Pre-eclampsia, Surgical Site Infection, DI for Postoperative Pain, [facility] Post Discharge Instructions, Preventing the Spread of Coronavirus Discharge Instructions - Follow up Plan Follow up with: Elvis Grijalva MD [Staff Physician] - Disposition: Home, Self-Care Condition at discharge:: Stable Home Medications: Home Medications Medication Instructions Recorded Confirmed Type PNV 153-FA 400 mcg-om3 35 mg-dha 1 tab PO DAILY 04/22/20 12/01/20 History 25 mg-epa 5 mg-fish oil chew tablet Ferrous Sulfate 325 mg PO DAILY 12/01/20 12/01/20 History NIFEdipine [NIFEdipine 10mg 10 mg PO Q6H 12/01/20 12/01/20 History Capsule] Oxycodone HCl/Acetaminophen 1 tab PO Q4-6H PRN #20 tablet 12/04/20 Rx [Percocet 5/325mg tablet] Prescriptions/Medication Reconciliation: New Oxycodone HCl/Acetaminophen [Percocet 5/325mg tablet] 1 tab PO Q4-6H PRN #20 tablet PRN Reason: Severe Pain Continued PNV 153-FA 400 mcg-om3 35 mg-dha 25 mg-epa 5 mg-fish oil chew tablet 1 tab PO DAILY Ferrous Sulfate 325 mg PO DAILY Discontinued NIFEdipine [NIFEdipine 10mg Capsule] 10 mg PO Q6H - Problem Reconciliation Problems Reviewed?: Yes
== END 2020-12-04 10:38 | disposition home or self-care (01) | DRG 788 ==
PROVIDERS: Admitting Provider Nurse Practitioner Obstetrics & Gynecology; Visit Provider Nurse Practitioner Obstetrics & Gynecology
PROC: (CPT 59514; principal; 2020-12-01 07:30)
DX: O34.211 Maternal care for low transverse scar from previous cesarean delivery (principal); N85.8 Other specified noninflammatory disorders of uterus; Z3A.39 39 weeks gestation of pregnancy; Z37.0 Single live birth; Z88.4 Allergy status to anesthetic agent
CPT/HCPCS: 59514; 36415; 59025; 80048; 80305; 81001; 82800; 85014; 85018; 85025; 87086; 94761; G0283; J0131; J0330; J2405; U0003

== ENCOUNTER 2021-01-04 16:14 | Emergency (ER) | payer MEDICAID, SELFPAY ==
[2021-01-04 16:30] VITALS: BP 102/69; PULSE 95; RESP 19; TEMP 36.9; O2SAT 98; BMI 21.6
--- NOTE | 2021-01-04 17:19 | HMH.EDUTC ---
[facility] [place] Disposition Clinical Impression: Exposure to COVID-19 virus Disposition: Home, Self-Care Condition on Discharge: Good Instructions: DI for COVID-19 (Suspected or Confirmed ), Coronavirus Disease 2019, Preventing the Spread of Coronavirus Discharge Instructions Additional Instructions: *Monitor Temp, Over the counter Motrin or Tylenol as directed/as needed Tylenol every 4 hours and Motrin every 6 hours (as long as your family doctor has told you that you can take it) for fever or pain. and straight to ER if unable to lower temp less than 101.0 after medication given Follow up IMMEDIATELY for new or worsening symptoms or no Noticeable improvement over the next 48-72 hours. 911 for difficulty breathing or swallowing You were tested for today for COVID19 your test result should be back in the next 24-48 hours, You was given handout to [facility] [employer] [facility] your results should be available on there later today if you do not have internet or trouble accessing you can call at [phone] You was given a handout with instructions for Self Quarantine and Self isolation for while you wait on test results and what to do if they are positive If you are positive the Health Dept will be contacting you also Make sure to take your Vitamins Vit. C Vit D and Zinc if you can take them Referrals: Srinivas Solomon MD [Primary Care Provider] - As needed Time of Disposition: 17:19 Medical Decision Making - Nathanael Inquiry Pt receiving controlled substance: No Nathanael was queried for this patient: No Vital Signs: 01/04/21 16:30 Temperature 98.4 F Temperature Source Oral Pulse Rate [Right Brachial] 95 H Respiratory Rate 19 Blood Pressure [Right Arm] 102/69 L Blood Pressure Mean [Right Arm] 80 Blood Pressure Source [Right Arm] Automatic Cuff Blood Pressure Position [Right Arm] Sitting 02 Sat by Pulse Oximetry 98 Oxygen Delivery Method Room Air Orders (Tests/Meds): ORDERS Category Date Time Status Covid-19 Nasal PCR ([facility]) Routine Lab 01/04/21 16:40 Received [facility] [place] HPI - General Stated complaint: covid exposure Time Seen by Provider: 01/04/21 17:19 Mode of Arrival: Ambulatory Source of Information: Patient Limitations: No Limitations Description of Symptoms (Recalled from Triage Doc. by RN): COVID TEST D/T EXPOSURE. DENIES SYMPTOMS HEENT Symptoms (Recalled from RN notes): No Resp Symptoms (Recalled from RN notes): No Skin Symptoms (Recalled from RN notes): No MS Symptoms (Recalled from RN notes): No Functional Status (Recalled from RN notes): WNL - History of Present Illness Provider Complaint: Patient state that she was recenlty around someone that tested positive for COVID but not having any symptoms and wanted to get tested to make sure that she doesnt have it - Related Data Home Medications Medication Instructions Recorded Confirmed PNV 153-FA 400 mcg-om3 35 mg-dha 1 tab PO DAILY 04/22/20 12/15/20 25 mg-epa 5 mg-fish oil chew tablet Ferrous Sulfate 325 mg PO DAILY 12/01/20 12/15/20 Previous Rx's Medication Instructions Recorded Oxycodone HCl/Acetaminophen 1 tab PO Q4-6H PRN #20 tab 12/04/20 [Percocet 5/325mg tablet] Allergies Allergy/AdvReac Type Severity Reaction Status Date / Time lidocaine Allergy Verified 12/15/20 16:10 - Worker's Comp Is this a Worker's Comp case?: No [facility] History - Hepatitis A Screen Drug use history?: No High risk sexual behaviors?: No History of sexually transmitted infection?: No Currently employed?: No Childcare worker?: No Do you have indoor plumbing?: Yes Do you have electricity?: Yes Attestation statement:: This patient has been screened for Hepatitis A risk factors. I have reviewed the patient's past medical history: Yes Medical History: Denies:: Cancer, Diabetes Mellitus Type 1, Diabetes Mellitus Type 2, MRSA, Seizures Laterality Cases: Bilateral: Tonsillectomy Other Surgeries: Yes: , Other Amputation: No Fractur
[2021-01-04 17:28] VITALS: BP 102/69; PULSE 95; RESP 19; TEMP 36.9; O2SAT 98
== END 2021-01-04 17:35 | disposition home or self-care (01) ==
PROVIDERS: Emergency Provider Nurse Practitioner; PCP Internal Medicine Adolescent Medicine
DX: Z20.822 Contact with and (suspected) exposure to COVID-19 (principal)
CPT/HCPCS: 99202; G0463; U0003

== ENCOUNTER 2021-01-07 13:13 | Emergency (ER) | payer MEDICAID, SELFPAY ==
--- NOTE | 2021-01-07 14:24 | HMH.EDUTC ---
[facility] [place] Disposition Clinical Impression: Viral syndrome Disposition: Home, Self-Care Condition on Discharge: Good Instructions: DI for Viral Syndrome Additional Instructions: Drink plenty of fluids. Take tylenol for pain or fever. Return if you begin to have difficulty breathing. Follow up with your regular doctor. GO TO THE ER FOR ANY WORSENING SYMPTOMS Quarantine until you know the results of your covid-19 test. If it is positive, the health department should call you and give you further instructions about your length of Quarantine and other things. Notify your school or workplace of your results and follow their instructions regarding return to work/school. Prescriptions: Ondansetron [Zofran 4mg ODT] 4 mg PO DAILYP PRN #12 tab PRN Reason: Nausea Transmission Status: Received by [facility] Referrals: Srinivas Solomon MD [Primary Care Provider] - Time of Disposition: 14:38 Medical Decision Making - Medical Records Medical records reviewed: No: I reviewed the patient's medical records. - Nathanael Inquiry Pt receiving controlled substance: No Vital Signs: 01/07/21 14:35 01/07/21 14:50 Temperature 98.9 F 98.9 F Temperature Source Oral Pulse Rate 101 H Pulse Rate [Left Radial] 101 H Respiratory Rate 20 20 Blood Pressure 117/38 L Blood Pressure [Right Arm] 117/38 L Blood Pressure Mean [Right Arm] 64 Blood Pressure Source [Right Arm] Automatic Cuff Blood Pressure Position [Right Arm] Standing 02 Sat by Pulse Oximetry 97 Oxygen Delivery Method Room Air Room Air Orders (Tests/Meds): ORDERS Category Date Time Status Covid-19 Nasal PCR ([facility]) Routine Lab 01/07/21 14:05 Received [facility] [place] HPI - General Stated complaint: muscle/body aches, loss of taste Time Seen by Provider: 01/07/21 14:24 - History of Present Illness Provider Complaint: She is here with complaints of loss of taste and chilling. She denies any known exposure to covid-19. She had a done 5 weeks ago. She states that when she started to feel bad she had some abdominal pain. - Related Data Home Medications Medication Instructions Recorded Confirmed PNV 153-FA 400 mcg-om3 35 mg-dha 1 tab PO DAILY 04/22/20 12/15/20 25 mg-epa 5 mg-fish oil chew tablet Ferrous Sulfate 325 mg PO DAILY 12/01/20 12/15/20 Previous Rx's Medication Instructions Recorded Oxycodone HCl/Acetaminophen 1 tab PO Q4-6H PRN #20 tab 12/04/20 [Percocet 5/325mg tablet] Ondansetron [Zofran 4mg ODT] 4 mg PO DAILYP PRN #12 tab 01/07/21 Allergies Allergy/AdvReac Type Severity Reaction Status Date / Time lidocaine Allergy Verified 12/15/20 16:10 [facility] History - Hepatitis A Screen Attestation statement:: This patient has been screened for Hepatitis A risk factors. I have reviewed the patient's past medical history: Yes Medical History: Denies:: Cancer, Diabetes Mellitus Type 1, Diabetes Mellitus Type 2, MRSA, Seizures Laterality Cases: Bilateral: Tonsillectomy Other Surgeries: Yes: , Other Amputation: No Fractures: No Comment: wisdom teeth - Social History Smoking Status: Never smoker Alcohol Intake: never Alcohol Intake Frequency:: other Substance Use Type: denies use Occupational Status: employed Family Hx:: No significant family history ROS Obtained: Yes All systems reviewed & no additional complaints - Constitutional Constitutional: Reports system reviewed and no additional complaints, except as docu - Eyes Eyes: Reports system reviewed and no additional complaints, except as docu - ENT Ears, Nose, Mouth, and Throat: Reports system reviewed and no additional complaints, except as docu - Cardiovascular Cardiovascular: Reports system reviewed and no additional complaints, except as docu - Respiratory Respiratory: Reports system reviewed and no additional complaints, except as docu Physical Exam - General General appearance: alert, in no apparent dis
[2021-01-07 14:35] VITALS: BP 117/38; PULSE 101; RESP 20; TEMP 37.2; O2SAT 97; BMI 21.6
[2021-01-07 14:50] VITALS: BP 117/38; PULSE 101; RESP 20; TEMP 37.2; O2SAT 97
[2021-01-09 09:15] LABS: UTC Strep Screen (Rapid) Negative (Negative)
== END 2021-01-07 15:07 | disposition home or self-care (01) ==
PROVIDERS: Emergency Provider Nurse Practitioner Family; PCP Internal Medicine Adolescent Medicine
DX: B34.9 Viral infection, unspecified (principal); Z20.822 Contact with and (suspected) exposure to COVID-19; R43.9 Unspecified disturbances of smell and taste
CPT/HCPCS: 87880; 99202; G0463; U0003

== ENCOUNTER → 2021-01-20 14:20 | Outpatient (CLI) | payer MEDICAID, SELFPAY | PROVIDERS: PCP Internal Medicine Adolescent Medicine; Visit Provider Nurse Practitioner | DX: Z20.822 Contact with and (suspected) exposure to COVID-19 (principal); U07.1 COVID-19 | CPT/HCPCS: C9803; U0003; U0005 ==